=== PATIENT | female | born 1990 | race Two or more races ===

== ENCOUNTER 2022-04-25 11:52 | Day surgery (SDC) | payer OTHER ==
[2022-04-25 13:43] VITALS: BMI 35.2
== END 2022-04-25 14:38 | disposition home or self-care (01) ==
LOC: CSHLD/OP 11:52
PROVIDERS: ATTEND Student in an Organized Health Care Education/Training Program
DX: Z36.89 Encounter for other specified antenatal screening (principal); O30.003 Twin pregnancy, unspecified number of placenta and unspecified number of amniotic sacs, third trimester; Z87.891 Personal history of nicotine dependence; O99.013 Anemia complicating pregnancy, third trimester; D64.9 Anemia, unspecified; O24.410 Gestational diabetes mellitus in pregnancy, diet controlled; Z3A.32 32 weeks gestation of pregnancy
CPT/HCPCS: 99282

== ENCOUNTER 2022-05-17 13:00 | Inpatient (IN) | payer OTHER ==
[2022-05-17 12:43] LABS: Hemoglobin 10.2 g/dL (12.0-15.5); Platelet Count 288 10x3/uL (150-450)
[2022-05-17 13:10] LABS: SARS-CoV-2 NAA Rapid Test Not Detected (NotDetected)
[2022-05-17 13:19] LABS: Syphilis Antibody Nonreactive (Nonreactive); Syphilis Antibody Index 0.04 S/CO (<1.00 Non-Reactive)
[2022-05-17 13:21] LABS: HBSAg Index 0.15 S/CO (0-0.99); HIV (1/2) Antibody/Antigen Non-Reactive (NonReactive); HIV 1/2 INDEX 0.09 S/CO (<1.00); Hep B Surf Ag Non-Reactive S/CO (NonReactive)
[2022-05-18] MEDS ORDERED: hydrALAZINE 20 MG/ML VIAL SLOW IVP PRN ×2 (09:49→16:51)
[2022-05-18] MEDS ORDERED: Misoprostol 200 MCG TAB PR PRN (09:49)
[2022-05-18] MEDS ORDERED: Methylergonovine 0.2 MG/ML VIAL IM PRN (09:49)
[2022-05-18] MEDS ORDERED: Diphenoxylate HCl/Atropine Tablet PO PRN (09:49)
[2022-05-18] MEDS ORDERED: Carboprost 250 MCG/ML AMP IM PRN (09:49)
[2022-05-18] MEDS ORDERED: Promethazine HCl 25 MG/ML VIAL IM PRN ×2 (09:49→13:51)
[2022-05-18] MEDS ORDERED: Bicitra 30 ML UDCUP PO PRN (09:49)
[2022-05-18] MEDS ORDERED: Docusate 100 MG CAP PO PRN (09:49)
[2022-05-18] MEDS ORDERED: Tranexamic Acid 1,000 MG in Sodium Chloride 0.9% 250 ML 250 ML IVPB PRN (09:49)
[2022-05-18] MEDS ORDERED: Butorphanol Tartrate 1 MG/ML VIAL SLOW IVP PRN (09:49)
[2022-05-18] MEDS ORDERED: Ondansetron PF 4 MG/2 ML Vial IVP PRN ×2 (09:49→13:51)
[2022-05-18] MEDS ORDERED: Famotidine/PF 20 mg/2ml Vial SLOW IVP PRN (09:49)
[2022-05-18] MEDS ORDERED: CEFAZOLIN 2 GM in Sodium Chloride 0.9% 100 ML IVPB SCH (10:00)
[2022-05-18] MEDS ORDERED: Lactated Ringer's 1,000 ML IV SCH (10:00)
[2022-05-18] MEDS ORDERED: NS w/ Oxytocin 30 units 500 ML IV SCH (10:00)
[2022-05-18 10:15] VITALS: BMI 35.4
[2022-05-18] MEDS ORDERED: Morphine PF 10 MG/10 ML VIAL ONE (12:02)
[2022-05-18] MEDS ORDERED: Oxytocin 10 UNITS/ML VIAL ONE (12:03)
[2022-05-18] MEDS ORDERED: Dexamethasone 4 mg/ml Vial ONE (12:03)
[2022-05-18] MEDS ORDERED: Ketorolac Tromethamine 30 MG/ML VIAL ONE ×2 (12:03→12:50)
[2022-05-18] MEDS ORDERED: Ondansetron PF 4 MG/2 ML Vial ONE (12:03)
[2022-05-18] MEDS ORDERED: Methylergonovine 0.2 MG/ML VIAL ONE (12:53)
[2022-05-18] MEDS ORDERED: diphenhydrAMINE 50 MG/ML VIAL ONE (12:55)
[2022-05-18 13:40] LABS: pH (Cord, venous) 7.284 (7.250-7.350)
[2022-05-18 13:44] LABS: pH (Cord, venous) 7.303 (7.250-7.350)
[2022-05-18] MEDS ORDERED: Promethazine HCl 25 MG SUPP PR PRN (13:51)
[2022-05-18] MEDS ORDERED: Naloxone HCl 0.4 mg/ml Vial IVP PRN ×2 (13:51)
[2022-05-18] MEDS ORDERED: Fentanyl 100 MCG/2 ML VIAL SLOW IVP PRN (13:51)
[2022-05-18] MEDS ORDERED: Meperidine HCl/PF 25 MG/ML VIAL SLOW IVP PRN (13:51)
[2022-05-18] MEDS ORDERED: Ondansetron HCl/PF 4 MG/2 ML Vial IVP PRN (13:51)
[2022-05-18] MEDS ORDERED: diphenhydrAMINE 50 MG/ML VIAL IVP PRN (13:51)
[2022-05-18] MEDS ORDERED: Ketorolac Tromethamine 30 MG/ML VIAL IVP PRN (13:51)
[2022-05-18] MEDS ORDERED: Naloxone HCl 0.4 mg/ml Vial IV PRN (13:51)
[2022-05-18] MEDS ORDERED: Moisturizing Cream (Eucerin) 113 GM JAR TOP PRN (13:51)
[2022-05-18] MEDS ORDERED: Ketorolac Tromethamine 30 MG/ML VIAL IVP SCH (14:00)
[2022-05-18] MEDS ORDERED: Communication Order-Pharmacy FS SCH (14:00)
[2022-05-18] MEDS ORDERED: Boostrix 0.5 ML (Tdap) VIAL (>/=7 yrs of age) IM ONE (16:51)
[2022-05-18] MEDS ORDERED: Lanolin Ointment 7 GM TUBE TOP PRN (16:51)
[2022-05-18] MEDS: Docusate 100 MG CAP PO SCH (22:02)
[2022-05-18] MEDS: Ferrous Sulfate 325 MG TAB PO SCH (22:02)
[2022-05-19 04:46] LABS: Hemoglobin 8.4 g/dL (12.0-15.5); Mean Corpuscular HGB CONC 33.2 g/dL (32.0-36.0); Mean Corpuscular Hemoglobin 27.4 pg (27.0-33.0); Mean Corpuscular Volume 82.4 fl (81.6-98.3); Mean Platelet Volume 10.9 fl (7.4-10.4); Platelet Count 246 10x3/uL (150-450); RBC Distribution Width 14.6 % (11.5-14.5); Red Blood Cell (RBC) Count 3.07 10x6/uL (3.90-5.03); White Blood Cell (WBC) Count 16.9 10x3/uL (3.5-10.5)
[2022-05-19] MEDS: Docusate 100 MG CAP PO SCH ×2 (08:24→20:09)
[2022-05-19] MEDS: Ferrous Sulfate 325 MG TAB PO SCH ×2 (08:24→20:09)
[2022-05-19] MEDS: metroNIDAZOLE 500 MG TAB PO SCH ×2 (08:24→21:15)
[2022-05-19] MEDS: Simethicone Chewable 80 MG TAB PO PRN (08:24)
[2022-05-19] MEDS: HYDROcodone/Acetaminophen 5/325 mg Tablet PO PRN ×2 (08:25→20:09)
[2022-05-19] MEDS: Prenatal Vitamin 1 TAB PO SCH (08:25)
[2022-05-19] MEDS ORDERED: Fluconazole 100 MG TAB PO SCH (09:00)
[2022-05-19] MEDS: Ibuprofen 800 MG TAB PO SCH ×2 (13:36→21:15)
[2022-05-20] MEDS: Ibuprofen 800 MG TAB PO SCH ×3 (05:02→21:22)
[2022-05-20] MEDS: HYDROcodone/Acetaminophen 5/325 mg Tablet PO PRN ×3 (05:02→16:40)
[2022-05-20] MEDS: Docusate 100 MG CAP PO SCH ×2 (08:21→21:22)
[2022-05-20] MEDS: Simethicone Chewable 80 MG TAB PO PRN ×2 (08:21→16:41)
[2022-05-20] MEDS: metroNIDAZOLE 500 MG TAB PO SCH ×2 (08:21→21:22)
[2022-05-20] MEDS: Prenatal Vitamin 1 TAB PO SCH (08:21)
[2022-05-20] MEDS: Ferrous Sulfate 325 MG TAB PO SCH ×2 (08:21→21:22)
[2022-05-21] MEDS: Ibuprofen 800 MG TAB PO SCH ×2 (05:33→14:01)
[2022-05-21] MEDS: HYDROcodone/Acetaminophen 5/325 mg Tablet PO PRN ×3 (05:33→14:04)
[2022-05-21 07:27] VITALS: BP 112/63; TEMP 98.4
[2022-05-21] MEDS: Prenatal Vitamin 1 TAB PO SCH (08:12)
[2022-05-21] MEDS: Ferrous Sulfate 325 MG TAB PO SCH (08:12)
[2022-05-21] MEDS: Docusate 100 MG CAP PO SCH (08:13)
[2022-05-21] MEDS: metroNIDAZOLE 500 MG TAB PO SCH (09:05)
== END 2022-05-21 14:30 | disposition home or self-care (01) | DRG 787 ==
LOC: CSHLD 05-18 09:30 → CSHPP 05-18 16:15
PROVIDERS: ADMIT Obstetrics & Gynecology; ATTEND Obstetrics & Gynecology
PROC: 10D00Z1 Extraction of Products of Conception, Low, Open Approach (ICD-10-PCS; principal; 2022-05-18)
DX: O30.033 Twin pregnancy, monochorionic/diamniotic, third trimester (principal); O98.813 Other maternal infectious and parasitic diseases complicating pregnancy, third trimester; Z3A.36 36 weeks gestation of pregnancy; Z37.2 Twins, both liveborn; Z20.822 Contact with and (suspected) exposure to COVID-19; O34.211 Maternal care for low transverse scar from previous cesarean delivery; O24.420 Gestational diabetes mellitus in childbirth, diet controlled; F41.9 Anxiety disorder, unspecified; F32.A Depression, unspecified; O99.344 Other mental disorders complicating childbirth; Z87.891 Personal history of nicotine dependence; Z79.899 Other long term (current) drug therapy; B37.31 Acute candidiasis of vulva and vagina; D64.9 Anemia, unspecified; O90.81 Anemia of the puerperium
CPT/HCPCS: 36415; 36416; 36430; 51702; 82805; 85014; 85018; 85027; 85049; 86780; 86850; 86900; 86901; 87340; 87389; 88307; J1100; J1200; J1885; J2210; J2274; J2405; J2590; U0002

== ENCOUNTER 2022-05-25 12:10 | Emergency (ER) | payer OTHER ==
[2022-05-25 13:42] LABS: #Basophils 0.1 10x3/uL (0.0-0.2); #Eosinphils 0.3 10x3/uL (0.0-0.5); #Monocytes 0.7 10x3/uL (0.0-1.1); #Neutrophils 5.1 10x3/uL (1.5-8.4); %Basophils 0.6 % (0.0-2.0); %Monocytes 7.8 % (0.0-10.0); %Neutrophils 56.9 % (40.0-75.0); Hemoglobin 8.6 g/dL (12.0-15.5); Mean Corpuscular HGB CONC 32.1 g/dL (32.0-36.0); Mean Corpuscular Hemoglobin 26.7 pg (27.0-33.0); Mean Corpuscular Volume 83.2 fl (81.6-98.3); Platelet Count 378 10x3/uL (150-450); RBC Distribution Width 15.1 % (11.5-14.5); Red Blood Cell (RBC) Count 3.22 10x6/uL (3.90-5.03); White Blood Cell (WBC) Count 8.9 10x3/uL (3.5-10.5)
[2022-05-25 13:54] LABS: ALT (SGPT) 17 U/L (8-55); AST (SGOT) 20 U/L (5-34); Albumin 3.4 g/dL (3.5-5.0); Alkaline Phosphatase 121 U/L (40-110); Anion Gap 12 mmol/L (10-20); BUN (Urea Nitrogen) 12 mg/dL (7.0-18.7); Bilirubin, Total 0.2 mg/dL (0.2-1.2); Calc. Creatinine Clearance 0 mL/min (70-130); Calcium 8.8 mg/dL (7.8-10.44); Carbon Dioxide 23 mmol/L (22-29); Chloride 110 mmol/L (98-107); Estimated GFR 124; Glucose 67 mg/dL (70-105); Magnesium 1.8 mg/dL (1.6-2.6); Potassium 3.7 mmol/L (3.5-5.1); Protein, Total 6.4 g/dL (6.0-8.3); Sodium 141 mmol/L (136-145)
== END 2022-05-25 14:40 | disposition home or self-care (01) ==
LOC: CSHERS 12:10
DX: Z71.1 Person with feared health complaint in whom no diagnosis is made (principal); Z87.891 Personal history of nicotine dependence
CPT/HCPCS: 36415; 80053; 83735; 85025; 99283

== ENCOUNTER 2024-02-18 08:32 | Day surgery (SDC) | payer OTHER ==
[2024-02-18] MEDS: Betamet Acet/Betamet Na Ph 30 MG/5 ML VIAL IM SCH (11:24)
== END 2024-02-18 11:28 | disposition home or self-care (01) ==
LOC: CSHLD/OP 08:32 → EEVIPCON 08:32 → CSHLD/OP 11:28
PROVIDERS: ATTEND Emergency Medicine
DX: G89.29 Other chronic pain (principal)
CPT/HCPCS: 96372; 99282; J0702

== ENCOUNTER 2024-02-19 10:34 | Day surgery (SDC) | payer OTHER ==
[2024-02-19 11:06] VITALS: BMI 31.7
[2024-02-19 11:17] LABS: Hematocrit 32.2 % (34.9-44.5); Hemoglobin 10.3 g/dL (12.0-15.5); Mean Corpuscular Hemoglobin 27.5 pg (27.0-33.0); Mean Corpuscular Volume 85.9 fL (81.6-98.3); Mean Platelet Volume 10.8 fL (7.4-10.4); Platelet Count 203 10x3/uL (150-450); RBC Distribution Width 14.6 % (11.5-14.5); Red Blood Cell (RBC) Count 3.75 10x6/uL (3.90-5.03); White Blood Cell (WBC) Count 13.1 10x3/uL (3.5-10.5)
[2024-02-19 11:18] LABS: MDiff Complete? YES
[2024-02-19 11:43] LABS: ALT (SGPT) 21 U/L (8-55); AST (SGOT) 17 U/L (5-34); Albumin 3.5 g/dL (3.5-5.0); Alkaline Phosphatase 69 U/L (40-110); Anion Gap 15 mmol/L (10-20); BUN (Urea Nitrogen) 13 mg/dL (7.0-18.7); Bilirubin, Total 0.2 mg/dL (0.2-1.2); Calc. Creatinine Clearance 194 mL/min (70-130); Carbon Dioxide 20 mmol/L (22-29); Chloride 108 mmol/L (98-107); Estimated GFR 120; Globulin 3.9 g/dL (2.4-3.5); Glucose 122 mg/dL (70-105); Potassium 3.8 mmol/L (3.5-5.1); Protein, Total 7.4 g/dL (6.0-8.3); Sodium 139 mmol/L (136-145)
[2024-02-19 11:48] LABS: D-Dimer Test 14.62 mcg/mL (0.19-0.50); PTT 23.7 sec (22.0-33.0); Prothrombin Time 10.4 sec (9.5-12.1)
[2024-02-19 11:51] LABS: Band 1 % (5-11); Lymphocytes 15 % (21-51); Monocytes 5 % (0-10); Neutrophil 79 % (42-75)
[2024-02-19 11:52] LABS: Platelet Adequacy Comment Appears Adequate; RBC Morph Comment Within Normal Limits
== END 2024-02-19 12:47 | disposition short-term general hospital (02) ==
LOC: UNDOADMIN 10:34 → CSHLD 10:34 → CSHSDC 10:34 → EEVIPCON 10:34 → UNDODISIN 12:47 → CSHSDC 12:47 → EDSTATUS 16:21
PROVIDERS: ATTEND Emergency Medicine
DX: O46.90 Antepartum hemorrhage, unspecified, unspecified trimester (principal); Z3A.00 Weeks of gestation of pregnancy not specified
CPT/HCPCS: 36415; 80053; 85025; 85049; 85300; 85362; 85384; 85610; 85730; 86850; 86900; 86901; 96360; 96361; 99283